=== PATIENT | male | born 1995 | race Caucasian/White ===

== ENCOUNTER 2025-02-26 13:58 | Emergency (ER) | payer SELFPAY ==
[~2025-02-26] VITALS: Ht 180.3 cm; Wt 86.0 kg
[2025-02-26 14:19] VITALS: O2SAT 98
[2025-02-26 16:05] VITALS: BP 150/94; PULSE 89; RESP 14; TEMP 36.7; O2SAT 98
== END 2025-02-26 16:06 | disposition home or self-care (01) ==
LOC: ER 13:58
DX: M79.672 Pain in left foot (principal)
CPT/HCPCS: 73630; 99283